=== PATIENT | male | born 1945 | race Caucasian/White ===

== ENCOUNTER 2025-01-15 07:40 | Day surgery (SDC) | payer MEDICARE, BC, SELFPAY ==
[2025-01-14 13:16] VITALS: BMI 30.6
[2025-01-15] VITALS (10 sets, daily range): BP systolic 98–135; BP diastolic 59–96; PULSE 81–100; RESP 14–18; TEMP 36.5–36.7; O2SAT 95–98; BMI 29.2
[2025-01-15] MEDS: SODIUM CHLORIDE 0.9% 500 ML 500 ML 20 ML IV (09:39)
[2025-01-15] MEDS: fentaNYL CIT INJ 50 mCg/ML AMP 2ML (ASD USE ONLY) IVP (09:42)
[2025-01-15] MEDS: MIDAZOLAM INJ 1 MG/ML VIAL 2 ML (ASD USE ONLY) 2 MG IVP (09:42)
--- NOTE | 2025-01-15 10:41 | SUR.PHASEII ---
EUS SITE CLEAR OF REDNESS AT DISCHARGED.
== END 2025-01-15 10:44 | disposition home or self-care (01) ==
PROVIDERS: PCP Internal Medicine; Referring Provider Specialist; Visit Provider Specialist
PROC: 0DBE8ZX Excision of Large Intestine, Via Natural or Artificial Opening Endoscopic, Diagnostic (ICD-10-PCS; CPT 45380; principal; 2025-01-15 09:00)
DX: Z12.11 Encounter for screening for malignant neoplasm of colon (principal); D12.2 Benign neoplasm of ascending colon; Z85.048 Personal history of other malignant neoplasm of rectum, rectosigmoid junction, and anus; Z98.0 Intestinal bypass and anastomosis status; D12.4 Benign neoplasm of descending colon; K64.9 Unspecified hemorrhoids; I48.20 Chronic atrial fibrillation, unspecified; Z79.01 Long term (current) use of anticoagulants; I10 Essential (primary) hypertension; Z79.899 Other long term (current) drug therapy
CPT/HCPCS: 45385; A4217; A4649; J1200; J2250; J3010; J7999